=== PATIENT | female | born 1985 | race African-American/Black ===

== ENCOUNTER 2017-10-26 21:32 | Emergency (ER) | payer MEDICAID, OTHER ==
[~2017-10-26] VITALS: Ht 152.4 cm; Wt 84.0 kg
[~2017-10-26 21:32] MED LIST: TRAM50TA94 PO
[2017-10-26 23:19] LABS: CLARITY URINE CLEAR (CLEAR); COLOR URINE YELLOW (YELLOW); KETONES URINE NEGATIVE (NEGATIVE); LEUKOCYTE ESTERASE URINE 1+ (NEGATIVE); NITRITE URINE NEGATIVE (NEGATIVE); OCCULT BLOOD URINE 1+ (NEGATIVE); PH URINE 5.5 (4.5-8.0); PROTEIN URINE NEGATIVE (NEGATIVE); SPECIFIC GRAVITY URINE 1.027 (1.005-1.030)
[2017-10-27] MEDS ORDERED: FAMOTIDINE 20MG/2ML VIAL IV STA (00:11)
[2017-10-27] MEDS ORDERED: MAGNESIUM/ALUMINUM HYDROXIDE/SIMETHICONE 30ML UDC PO STA (00:11)
[2017-10-27] MEDS ORDERED: ONDANSETRON HCL 4MG/2ML VIAL IV STA (00:11)
[2017-10-27] MEDS ORDERED: VISCOUS LIDOCAINE 2% 15 ML UDC PO STA (00:11)
[2017-10-27 00:36] LABS: BASOPHILS % 0.5 % (0.0-2.0); EOSINOPHILS % 2.7 % (0.0-5.0); HEMATOCRIT. 38.3 % (36.0-48.0); HEMOGLOBIN. 12.6 g/dL (12.0-16.0); LYMPHOCYTES % 28.7 % (20.0-50.0); MEAN CORPUSCULAR HEMOGLOBIN 28.6 pg (28.0-32.0); MEAN CORPUSCULAR VOLUME 86.8 fL (81.0-99.0); MEAN PLATELET VOLUME 7.6 fl (7.4-10.4); MONOCYTES % 5.2 % (2.0-8.0); NEUTROPHILS % 62.9 % (40.0-76.0); PLATELET 301 x1000/uL (130-400); RED BLOOD CELL COUNT 4.41 mill/uL (4.2-5.4); RED CELL DISTRIBUTION WIDTH 13.9 % (11.6-14.6)
[2017-10-27 00:46] LABS: CHLORIDE 109 mEq/L (98-107)
[2017-10-27] MEDS ORDERED: CEFTRIAXONE 1 G PREMIX 50 ML IV NR (02:15)
[2017-10-27] MEDS ORDERED: ACETAMINOPHEN 500MG TABLET PO ONE (03:30)
[2017-10-27 03:50] VITALS: BP 115/77
== END 2017-10-27 03:53 | disposition home or self-care (01) ==
LOC: ER 21:32
DX: N39.0 Urinary tract infection, site not specified (principal); K29.70 Gastritis, unspecified, without bleeding; D72.829 Elevated white blood cell count, unspecified; R03.0 Elevated blood-pressure reading, without diagnosis of hypertension; Z90.49 Acquired absence of other specified parts of digestive tract; Z87.828 Personal history of other (healed) physical injury and trauma
CPT/HCPCS: 36415; 71045; 80053; 81003; 81025; 83690; 85025; 96365; 96375; 99285; J0696; J2405; J3490

== ENCOUNTER 2018-07-08 11:19 | Inpatient (IN) | payer MEDICAID ==
[~2018-07-08] VITALS: Ht 152.4 cm; Wt 83.9 kg
[2018-07-08] MEDS ORDERED: SODIUM CHLORIDE 0.9% 1,000 ML IV ONE (12:03)
[2018-07-08] MEDS ORDERED: MORPHINE SULFATE 4 MG/ML CPJ (NOT FOR IM USE) IV STA (12:03)
[2018-07-08] MEDS ORDERED: ONDANSETRON HCL 4MG/2ML INJ IV STA (12:03)
[2018-07-08] MEDS ORDERED: PANTOPRAZOLE SODIUM 40 MG/VIAL IV ONE (12:15)
[2018-07-08 12:25] LABS: BASOPHILS % 0.5 % (0.0-2.0); EOSINOPHILS % 0.3 % (0.0-5.0); HEMATOCRIT. 41.3 % (36.0-48.0); HEMOGLOBIN. 13.7 g/dL (12.0-16.0); LYMPHOCYTES % 15.2 % (20.0-50.0); MEAN CORPUSCULAR HEMOGLOBIN 29.1 pg (28.0-32.0); MEAN CORPUSCULAR VOLUME 88.1 fL (81.0-99.0); MEAN PLATELET VOLUME 7.9 fl (7.4-10.4); MONOCYTES % 5.3 % (2.0-8.0); NEUTROPHILS % 78.7 % (40.0-76.0); PLATELET 289 x1000/uL (130-400); RED BLOOD CELL COUNT 4.69 mill/uL (4.2-5.4); RED CELL DISTRIBUTION WIDTH 13.8 % (11.6-14.6)
[2018-07-08 12:33] LABS: CHLORIDE 109 mEq/L (98-107); PROTHROMBIN TIME 10.7 sec (9.6-11.0)
[2018-07-08 12:39] LABS: HCG SCREEN NEGATIVE
[2018-07-08] MEDS ORDERED: MORPHINE SULFATE 4 MG/ML CPJ (NOT FOR IM USE) IV ONE (13:30)
[2018-07-08] MEDS ORDERED: SODIUM CHLORIDE 0.9% 1000ML BAG (SEPSIS BOLUS) IV ONE (13:45)
[2018-07-08] MEDS ORDERED: IOHEXOL-300 100 ML BOTTLE ONE (14:07)
[2018-07-08 14:59] LABS: CLARITY URINE CLEAR (CLEAR); COLOR URINE YELLOW (YELLOW); KETONES URINE 1+ (NEGATIVE); LEUKOCYTE ESTERASE URINE 1+ (NEGATIVE); NITRITE URINE NEGATIVE (NEGATIVE); OCCULT BLOOD URINE TRACE (NEGATIVE); PROTEIN URINE NEGATIVE (NEGATIVE); SPECIFIC GRAVITY URINE 1.057 (1.005-1.030); UROBILINOGEN URINE 0.2 E.U./dL (0.2-1.0)
[2018-07-08] MEDS ORDERED: PIPERACILLIN/TAZ 3.375G PREMIX 50 ML IV NR (15:45)
[2018-07-08] MEDS ORDERED: METOCLOPRAMIDE HCL 10MG/2ML VIAL IV ONE (16:00)
[2018-07-08] MEDS ORDERED: DIPHENHYDRAMINE 50MG/ML VIAL IV ONE (16:00)
[2018-07-08] MEDS ORDERED: IPRATROPIUM/ALBUTEROL 0.5-3(2.5)MG/3ML NEB INH PRN (21:00)
[2018-07-08] MEDS ORDERED: ACETAMINOPHEN 325MG TABLET PO PRN (21:00)
[2018-07-08] MEDS ORDERED: DOCUSATE SODIUM 100MG CAPSULE PO PRN (21:00)
[2018-07-08 21:20] LABS: *BARBITURATES SCREEN URINE NEGATIVE (NEGATIVE)
[2018-07-08 21:21] LABS: *BENZODIAZEPINES SCREEN URINE NEGATIVE (NEGATIVE); CANNABINOID URINE SCREEN NEGATIVE (NEGATIVE); METHADONE URINE SCREEN NEGATIVE (NEGATIVE); PHENCYCLIDINE URINE SCREEN NEGATIVE (NEGATIVE)
[2018-07-08 21:22] LABS: *COCAINE SCREEN URINE PRESUMTIVE POSITIVE (NEGATIVE)
[2018-07-08 21:23] LABS: OPIATES URINE SCREEN PRESUMTIVE POSITIVE (NEGATIVE)
[2018-07-08 21:24] LABS: *AMPHETAMINES SCREEN URINE PRESUMTIVE POSITIVE (NEGATIVE)
[2018-07-08] MEDS ORDERED: CEFTRIAXONE 1 G PREMIX 50 ML IV SCH (22:00)
[2018-07-08 23:00] VITALS: BP 130/80
[2018-07-09] VITALS: BP 139/88
[2018-07-09] MEDS: CEFTRIAXONE 1 G PREMIX 50 ML IV SCH ×2 (00:58→23:50)
[2018-07-09] MEDS: SODIUM CHLORIDE 0.9% 1,000 ML IV SCH ×2 (00:59→11:39)
[2018-07-09] MEDS: LORAZEPAM 0.5MG TABLET PO PRN ×2 (01:10→22:00)
[2018-07-09 04:00] VITALS: BP 134/85
[2018-07-09 08:00] VITALS: BP 113/91
[2018-07-09] MEDS: HYDROCODONE/ACETAMINOPHEN 5/325MG TABLET PO PRN ×3 (08:19→22:01)
[2018-07-09] MEDS: ONDANSETRON HCL 4MG/2ML INJ IV PRN ×2 (09:31→22:00)
[2018-07-09 12:00] VITALS: BP 125/96
[2018-07-09] MEDS ORDERED: INFLUENZA VIRUS VACCINE(AFLURIA) 0.5ML SYR IM ONE (12:00)
[2018-07-09] MEDS: PANTOPRAZOLE 40MG DR TABLET PO SCH ×2 (14:03→20:25)
[2018-07-09 16:36] LABS: HEMATOCRIT 36.8 % (36.0-48.0); HEMOGLOBIN 12.3 g/dL (12.0-16.0)
[2018-07-09 20:00] VITALS: BP 126/85
[2018-07-10] VITALS: BP 120/78
[2018-07-10 04:00] VITALS: BP 120/86
[2018-07-10] MEDS: HYDROCODONE/ACETAMINOPHEN 5/325MG TABLET PO PRN (04:06)
[2018-07-10] MEDS: SODIUM CHLORIDE 0.9% 1,000 ML IV SCH (04:06)
[2018-07-10] MEDS: PANTOPRAZOLE 40MG DR TABLET PO SCH (06:27)
[2018-07-10 08:00] VITALS: BP 155/63
[2018-07-10] MEDS: ONDANSETRON HCL 4MG/2ML INJ IV PRN (08:38)
[2018-07-10 12:00] VITALS: BP 119/69
[2018-07-10 12:34] VITALS: BP 119/69
== END 2018-07-10 14:02 | disposition home or self-care (01) | DRG 241 ==
LOC: ER 11:19 → 6EST 15:45 → EDBEDREQ 15:48 → EDBEDREQSVC 15:48 → ENRESERV 19:56
PROVIDERS: ADMIT Internal Medicine; ATTEND Internal Medicine
DX: K29.21 Alcoholic gastritis with bleeding (principal); E87.2 Acidosis; B37.49 Other urogenital candidiasis; J45.909 Unspecified asthma, uncomplicated; F19.90 Other psychoactive substance use, unspecified, uncomplicated; Z90.49 Acquired absence of other specified parts of digestive tract
CPT/HCPCS: 36415; 74177; 80305; 83605; 84703; 85014; 85018; 96365; 96366; 96375; 99291; C9113; J0696; J1200; J2270; J2405; J2543; J2765; J7030; Q9967

== ENCOUNTER 2018-08-24 07:53 | Emergency (ER) | payer MEDICAID ==
[~2018-08-24] VITALS: Ht 152.4 cm; Wt 84.0 kg
[2018-08-24 08:05] VITALS: BP 128/89
[2018-08-24] MEDS ORDERED: KETOROLAC 60MG/2ML VIAL IM ONE (08:45)
== END 2018-08-24 10:26 | disposition home or self-care (01) ==
LOC: ER 07:53
DX: M25.511 Pain in right shoulder (principal); J45.909 Unspecified asthma, uncomplicated; Z90.49 Acquired absence of other specified parts of digestive tract; Z98.890 Other specified postprocedural states; V43.62XA Car passenger injured in collision with other type car in traffic accident, initial encounter; Y93.89 Activity, other specified; Y92.488 Other paved roadways as the place of occurrence of the external cause
CPT/HCPCS: 71045; 73030; 81025; 96372; 99283; J1885; A4565

== ENCOUNTER 2019-05-26 05:35 | Emergency (ER) | payer MEDICAID ==
[~2019-05-26] VITALS: Ht 152.4 cm; Wt 82.0 kg
[2019-05-26] MEDS ORDERED: SODIUM CHLORIDE 0.9% 1,000 ML IV ONE (06:15)
[2019-05-26] MEDS ORDERED: ONDANSETRON HCL 4MG/2ML INJ IV STA (06:15)
[2019-05-26 06:44] LABS: BASOPHILS % 0.7 % (0.0-2.0); EOSINOPHILS % 1.3 % (0.0-5.0); HEMATOCRIT. 41.6 % (36.0-48.0); HEMOGLOBIN. 13.9 g/dL (12.0-16.0); LYMPHOCYTES % 29.1 % (20.0-50.0); MEAN CORPUSCULAR HEMOGLOBIN 29.4 pg (28.0-32.0); MEAN CORPUSCULAR VOLUME 88.1 fL (81.0-99.0); MEAN PLATELET VOLUME 7.7 fl (7.4-10.4); MONOCYTES % 5.4 % (2.0-8.0); NEUTROPHILS % 63.5 % (40.0-76.0); PLATELET 295 x1000/uL (130-400); RED BLOOD CELL COUNT 4.72 mill/uL (4.2-5.4); RED CELL DISTRIBUTION WIDTH 13.9 % (11.6-14.6)
[2019-05-26 06:50] LABS: CHLORIDE 111 mEq/L (98-107); PROTHROMBIN TIME 10.7 sec (9.6-11.0)
[2019-05-26 07:51] LABS: CLARITY URINE TURBID (CLEAR); COLOR URINE YELLOW (YELLOW); KETONES URINE NEGATIVE (NEGATIVE); LEUKOCYTE ESTERASE URINE NEGATIVE (NEGATIVE); NITRITE URINE NEGATIVE (NEGATIVE); OCCULT BLOOD URINE 1+ (NEGATIVE); PROTEIN URINE NEGATIVE (NEGATIVE); SPECIFIC GRAVITY URINE 1.023 (1.005-1.030); UROBILINOGEN URINE 0.2 E.U./dL (0.2-1.0)
[2019-05-26] MEDS ORDERED: MAGNESIUM/ALUMINUM HYDROXIDE/SIMETHICONE 30ML UDC PO STA (07:51)
[2019-05-26] MEDS ORDERED: VISCOUS LIDOCAINE 2% 15 ML UDC PO STA (07:51)
[2019-05-26] MEDS ORDERED: PANTOPRAZOLE SODIUM 40 MG/VIAL IV STA (07:51)
[2019-05-26 09:29] LABS: *BARBITURATES SCREEN URINE NEGATIVE (NEGATIVE); *BENZODIAZEPINES SCREEN URINE NEGATIVE (NEGATIVE); METHADONE URINE SCREEN NEGATIVE (NEGATIVE); OPIATES URINE SCREEN NEGATIVE (NEGATIVE)
[2019-05-26 09:30] LABS: PHENCYCLIDINE URINE SCREEN NEGATIVE (NEGATIVE)
[2019-05-26 09:46] LABS: *AMPHETAMINES SCREEN URINE PRESUMTIVE POSITIVE (NEGATIVE); *COCAINE SCREEN URINE PRESUMTIVE POSITIVE (NEGATIVE); CANNABINOID URINE SCREEN PRESUMTIVE POSITIVE (NEGATIVE)
[2019-05-26 10:29] VITALS: BP 121/83
== END 2019-05-26 11:00 | disposition home or self-care (01) ==
LOC: ER 05:35
DX: R10.13 Epigastric pain (principal); R11.2 Nausea with vomiting, unspecified; F19.10 Other psychoactive substance abuse, uncomplicated; F14.10 Cocaine abuse, uncomplicated; F12.10 Cannabis abuse, uncomplicated; F10.229 Alcohol dependence with intoxication, unspecified; Y90.1 Blood alcohol level of 20-39 mg/100 ml; F17.290 Nicotine dependence, other tobacco product, uncomplicated; F11.10 Opioid abuse, uncomplicated; F15.10 Other stimulant abuse, uncomplicated; J45.909 Unspecified asthma, uncomplicated; Z90.49 Acquired absence of other specified parts of digestive tract; Z98.890 Other specified postprocedural states
CPT/HCPCS: 36415; 71045; 80053; 80305; 80320; 81003; 81025; 83690; 85025; 85610; 96361; 96374; 96375; 99284; C9113; J2405; J7030; G0480

== ENCOUNTER 2024-11-01 20:02 | Emergency (ER) | payer MEDICAID ==
[~2024-11-01] VITALS: Ht 152.4 cm; Wt 93.4 kg
[2024-11-01 20:03] VITALS: TEMP 37.1; O2SAT 100
[2024-11-01 20:09] VITALS: O2SAT 98
[2024-11-01 21:14] LABS: BASOPHILS % 0.5 % (0.0-2.0); EOSINOPHILS % 0.6 % (0.0-5.0); HEMATOCRIT. 36.8 % (36.0-48.0); HEMOGLOBIN. 12.1 g/dL (12.0-16.0); LYMPHOCYTES % 21.3 % (20.0-50.0); MEAN PLATELET VOLUME 8.3 fl (7.4-10.4); MONOCYTES % 7.0 % (2.0-8.0); NEUTROPHILS % 70.6 % (40.0-76.0); PLATELET 269 x1000/uL (130-400); RED BLOOD CELL COUNT 4.24 mill/uL (4.2-5.4); RED CELL DISTRIBUTION WIDTH 13.4 % (11.6-14.6)
[2024-11-01 21:35] LABS: CLARITY URINE CLEAR (CLEAR); COLOR URINE DARK YELLOW (YELLOW); GLUCOSE URINE NEGATIVE (NEGATIVE); KETONES URINE TRACE (NEGATIVE); LEUKOCYTE ESTERASE URINE NEGATIVE (NEGATIVE); NITRITE URINE NEGATIVE (NEGATIVE); OCCULT BLOOD URINE NEGATIVE (NEGATIVE); PH URINE 5.5 (4.5-8.0); PROTEIN URINE TRACE (NEGATIVE); SPECIFIC GRAVITY URINE 1.033 (1.005-1.030); UROBILINOGEN URINE 1.0 E.U./dL (0.2-1.0)
[2024-11-01 21:43] LABS: CREATININE 0.8 mg/dL (0.6-1.0); UREA NITROGEN BLOOD 11 mg/dL (9-23)
[2024-11-01 21:45] LABS: ASPARTATE AMINOTRANSFERASE 17 IU/L (<34); BILIRUBIN DIRECT 0.1 mg/dL (<=3.0); BILIRUBIN TOTAL 0.4 mg/dL (0.1-1.0); PROTEIN TOTAL 7.4 g/dL (6.0-8.3)
[2024-11-01 21:56] LABS: BACTERIA URINE 1+; RBC URINE 0-2 /hpf (0-2); SQUAMOUS EPITHELIAL CELL URINE 1+ /lpf (RARE/1+); WBC URINE 0-2 /hpf (0-2)
[2024-11-01 22:16] LABS: HCG SCREEN NEGATIVE
[2024-11-01] MEDS ORDERED: CLIN45GE10 TP (23:31)
[2024-11-02 00:13] VITALS: BP 112/77; PULSE 112; RESP 18
[2024-11-02] MEDS: KETOROLAC 30MG/ML VIAL IM ONE (00:13)
== END 2024-11-02 02:03 | disposition home or self-care (01) ==
LOC: ER 20:02
DX: R10.12 Left upper quadrant pain (principal); J45.909 Unspecified asthma, uncomplicated; F15.90 Other stimulant use, unspecified, uncomplicated; F11.90 Opioid use, unspecified, uncomplicated; F14.90 Cocaine use, unspecified, uncomplicated; Z79.899 Other long term (current) drug therapy; Z90.49 Acquired absence of other specified parts of digestive tract
CPT/HCPCS: 99285; 74176; 80076; 80048; 81003; 84703; 83690; 85025; 36415; 96372; J1885

== ENCOUNTER 2025-01-11 18:45 | Emergency (ER) | payer OTHER ==
[~2025-01-11] VITALS: Ht 165.1 cm; Wt 95.0 kg
[~2025-01-11 18:45] MED LIST changes: +CLIN45GE10 TP
[2025-01-11 18:46] VITALS: O2SAT 98
[2025-01-11 19:14] VITALS: TEMP 36.9; O2SAT 100
[2025-01-11] MEDS: METOCLOPRAMIDE HCL 10MG TABLET PO ONE (21:10)
[2025-01-11] MEDS: DIPHENHYDRAMINE 25MG CAPSULE PO ONE (21:11)
[2025-01-11 21:16] VITALS: BP 104/78; PULSE 77; RESP 14
[2025-01-11] MEDS: KETOROLAC 30MG/ML VIAL IM ONE (21:16)
[2025-01-11] MEDS: SODIUM CHLORIDE 0.9% 1,000 ML IV ONE (22:15)
[2025-01-11 23:49] VITALS: TEMP 98.5
[2025-01-11] MEDS: ACETAMINOPHEN 325MG TABLET PO ONE (23:49)
== END 2025-01-11 23:50 | disposition home or self-care (01) ==
LOC: ER 18:45
DX: R51.9 Headache, unspecified (principal); J45.909 Unspecified asthma, uncomplicated; Z90.49 Acquired absence of other specified parts of digestive tract
CPT/HCPCS: 99285; 96360; 70450; 81025; 96372; J1885; Q0163; J8597; J7030